=== PATIENT | male | born 1945 | race Caucasian/White ===

== ENCOUNTER → 2017-03-06 | Outpatient (CLI) | payer MEDICARE ==
[2016-01-20 09:48] VITALS: BMI 20.7
[~2017-03-06] MED LIST: ALBU8.5H IH; ASPI-1471 PO; ATOR20TA22 PO; ATOR20TA65 PO; BUDE10.2 IH; CARV25TA78 PO; DULERAPT INH; FLUT9.9S; FUR20; FURO-45 PO; FURO20TA19 PO; GUAI600T57 PO; HYDR-2966 PO; INHALER; LEVO25TA61 PO; LISI-346 PO; LISI-362 PO; LISI20TA29 PO; OMEG-11 PO; OMEG-23 PO; PNEU0.5D3 IM; PRED-1 PO; SERT-184 PO; [UNRECOGNIZED DRUG - REMARK]
[2017-03-06 12:04] LABS: PLATELET COUNT, AUTOMATED 257 K/uL (150-450)
== END ==
LOC: LAB 11:57
PROVIDERS: ATTEND Family Medicine
DX: R19.7 Diarrhea, unspecified (principal); I10 Essential (primary) hypertension
CPT/HCPCS: 36415; 82310; 82374; 82435; 82565; 82947; 84132; 84295; 84520; 85025

== ENCOUNTER 2017-06-20 09:00 | Outpatient (RCR) | payer MEDICARE ==
[2016-01-20 09:48] VITALS: BMI 20.7
== END 2017-06-20 18:00 | disposition home or self-care (01) ==
LOC: RESP 09:00
PROVIDERS: ATTEND Family Medicine
DX: R09.02 Hypoxemia (principal); Z87.09 Personal history of other diseases of the respiratory system

== ENCOUNTER 2017-07-17 16:05 | Emergency (ER) | payer MEDICARE ==
[2016-01-20 09:48] VITALS: Wt 63.5 kg
[2017-07-17] MEDS ORDERED: LISI20TA29 PO (16:16)
[2017-07-17] MEDS ORDERED: LEVO50TA86 PO (16:16)
--- NOTE | 2017-07-17 16:18 | ER Report ---
History and Physical Time Seen By MD: 16:17 HPI/ROS CHIEF COMPLAINT: Blood in stool HISTORY OF PRESENT ILLNESS: This is a 72-year-old male who presents to the emergency department for bright red blood in the stool. Patient states he was seen by Dr. STRAUSS today had a normal exam, went home and was straining to have a bowel movement and noticed some bright red blood in his stool, patient states that it was uncomfortable, patient also states that he does have a history of hemorrhoids. Patient does have a family member here confirming that he does have a history of hemorrhoids. Patient did state that the bowel movement today was very hard and firm. Patient denies aches, chills, nausea, vomiting or diarrhea. Denies dizziness. REVIEW OF SYSTEMS: Constitutional: No fever, no chills. Eyes: No discharge. ENT: No sore throat. Cardiovascular: No chest pain, no palpitations. Respiratory: No cough, no shortness of breath. Gastrointestinal: As above. Genitourinary: No hematuria. Musculoskeletal: No back pain. Skin: No rashes. Neurological: No headache. Allergies: Coded Allergies: Sulfa (Sulfonamide Antibiotics) (Verified Allergy, Intermediate, HIVES, RASH, 07/17/17) Home Meds Active Scripts Carvedilol (CARVEDILOL) 25 Mg Tablet, 1 TAB PO BID, #180 TAB 4 Refills Prov:POPPY BLAKE MD 01/10/17 Atorvastatin Calcium (LIPITOR) 20 Mg Tablet, 1 TAB PO QDAY for 90 Days, #90 TAB 3 Refills Prov:POPPY BLAKE MD 10/17/16 Reported Medications Lisinopril (LISINOPRIL) 20 Mg Tablet, 20 MG PO QDAY, TAB 07/17/17 Levothyroxine Sodium (LEVOTHYROXINE SODIUM) 50 Mcg Tablet, 25 MCG PO QDAY, TAB 07/17/17 Aspirin (ASPIR 81) 81 Mg Tablet., 1 TAB PO QDAY, TAB 09/15/16 Discontinued Reported Medications Mometasone/Formoterol (DULERA 200 MCG/5 MCG INHALER) Unknown Strength Inh, INH BID, INH 09/14/16 Discontinued Scripts Lisinopril (LISINOPRIL) 10 Mg Tablet, 10 MG PO QDAY for 90 Days, #90 TAB 3 Refills Prov:POPPY BLAKE MD 04/17/17 Fluticasone Propionate (Flonase Allergy Relief) 9.9 Ml [place].susp, 1 SPRAY NA BID for 30 Days, #1 BOTTLE 3 Refills Prov:POPPY BLAKE MD 10/17/16 Past Medical/Surgical History Patient has a past medical and surgical history of 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 Hx Smoking: Yes Smoking Status: Former Smoker Exposure to Second Hand Smoke?: No Hx Substance Use Disorder: No Hx Alcohol Use: Yes Constitutional Vital Sign - Last 24 Hours 07/17/17 07/17/17 07/17/17 07/17/17 16:12 16:19 16:20 16:30 Temp 97.6 Pulse 71 72 Resp 16 B/P (MAP) 200/95 178/160 (166) 187/93 (124) Pulse Ox 90 91 O2 Delivery Room Air 07/17/17 07/17/17 07/17/17 07/17/17 16:50 17:00 17:05 17:20 Pulse 70 71 71 B/P (MAP) 189/96 (127) Pulse Ox 89 89 87 07/17/17 07/17/17 07/17/17 07/17/17 17:30 17:35 17:50 18:00 Pulse 72 73 B/P (MAP) 210/109 (142) 202/111 (141) Pulse Ox 88 91 07/17/17 07/17/17 07/17/17 07/17/17 18:30 18:45 19:00 19:15 Pulse 86 69 91 84 B/P (MAP) 197/96 (129) 190/118 (142) Pulse Ox 90 86 86 85 07/17/17 07/17/17 07/17/17 07/17/17 19:20 19:50 20:00 20:05 Pulse ? 68 B/P (MAP) 203/105 (137) 208/105 (139) Pulse Ox 89 96 Physical Exam General Appearance: The patient is alert, has no immediate need for airway protection and no signs of toxicity. Eyes: Pupils equal and round no pallor or injection. ENT, Mouth: Mucous membranes are moist. Respiratory: There are no retractions, lungs are clear to auscultation. Cardiovascular: Regular rate and rhythm, systolic murmur, clicks or rubs. Gastrointestinal: Abdomen is soft and non tender, no masses, bowel sounds normal. Rectal exam positive for large hard stool in the rectal vault. One small hemorrhoid nonthrombosed no hematochezia. Neurological: Alert and oriented 3. No focal neuro deficits. Following all commands. Skin: Warm and dry, no rashes. Musculoskeletal: Neck is supple non tender. Extremities are nontender, nonswollen and have full range of motion. DIFFERENTIAL DIAGNOSIS: After history and physical exam differential diagnosis was considered for upper GI bleed, lower GI bleed, hemorrhoids and constipation. Medical Decision Making Data Points Result Diagram: 07/17/17 1632 07/17/17 1632 Laboratory Hematology Test 07/17/17 16:32 07/17/17 17:05 Red Blood Count 5.14 M/uL (4.00-5.60) Mean Corpuscular Volume 86.3 fL (80.0-96.0) Mean Corpuscular Hemoglobin 28.9 pg (26.0-33.0) Mean Corpuscular Hemoglobin Concent 33.5 g/dL (32.0-36.0) Red Cell Distribution Width 13.4 % (11.5-14.5) Mean Platelet Volume 7.3 fL (7.2-11.1) Neutrophils (%) (Auto) 80.1 % (39.4-72.5) Lymphocytes (%) (Auto) 8.8 % (17.6-49.6) Monocytes (%) (Auto) 5.4 % (4.1-12.4) Eosinophils (%) (Auto) 4.9 % (0.4-6.7) Basophils (%) (Auto) 0.8 % (0.3-1.4) Nucleated RBC Relative Count (auto) 0.1 /100WBC Neutrophils # (Auto) 9.2 K/uL (2.0-7.4) Lymphocytes # (Auto) 1.0 K/uL (1.3-3.6) Monocytes # (Auto) 0.6 K/uL (0.3-1.0) Eosinophils # (Auto) 0.6 K/uL (0.0-0.5) Basophils # (Auto) 0.1 K/uL (0.0-0.1) Nucleated RBC Absolute Count (auto) 0.01 K/uL Sodium Level 135 mmol/L (137-145) Potassium Level 4.7 mmol/L (3.5-5.0) Chloride Level 99 mmol/L (98-107) Carbon Dioxide Level 26 mmol/L (22-30) Blood Urea Nitrogen 37 mg/dl (9-21) Creatinine 1.10 mg/dl (0.66-1.25) Glomerular Filtration Rate Calc > 60.0 Random Glucose 97 mg/dl (75-110) Calcium Level 9.1 mg/dl (8.4-10.2) Total Bilirubin 0.9 mg/dl (0.2-1.3) Aspartate Amino Transf (AST/SGOT) 28 U/L (0-35) Alanine Aminotransferase (ALT/SGPT) 26 U/L (0-56) Alkaline Phosphatase 110 U/L (0-126) Total Protein 7.9 gm/dl (6.3-8.2) Albumin 4.0 g/dl (3.5-5.0) Prothrombin Time 15.0 seconds (12.0-14.4) Prothromb Time International Ratio 1.17 Activated Partial Thromboplast Time 32 seconds (23-35) Chemistry Test 07/17/17 16:32 07/17/17 17:05 White Blood Count 11.5 k/uL (4.5-11.0) Red Blood Count 5.14 M/uL (4.00-5.60) Hemoglobin 14.8 g/dL (14.0-18.0) Hematocrit 44.4 % (42.0-52.0) Mean Corpuscular Volume 86.3 fL (80.0-96.0) Mean Corpuscular Hemoglobin 28.9 pg (26.0-33.0) Mean Corpuscular Hemoglobin Concent 33.5 g/dL (32.0-36.0) Red Cell Distribution Width 13.4 % (11.5-14.5) Platelet Count 291 K/uL (150-450) Mean Platelet Volume 7.3 fL (7.2-11.1) Neutrophils (%) (Auto) 80.1 % (39.4-72.5) Lymphocytes (%) (Auto) 8.8 % (17.6-49.6) Monocytes (%) (Auto) 5.4 % (4.1-12.4) Eosinophils (%) (Auto) 4.9 % (0.4-6.7) Basophils (%) (Auto) 0.8 % (0.3-1.4) Nucleated RBC Relative Count (auto) 0.1 /100WBC Neutrophils # (Auto) 9.2 K/uL (2.0-7.4) Lymphocytes # (Auto) 1.0 K/uL (1.3-3.6) Monocytes # (Auto) 0.6 K/uL (0.3-1.0) Eosinophils # (Auto) 0.6 K/uL (0.0-0.5) Basophils # (Auto) 0.1 K/uL (0.0-0.1) Nucleated RBC Absolute Count (auto) 0.01 K/uL Glomerular Filtration Rate Calc > 60.0 Calcium Level 9.1 mg/dl (8.4-10.2) Total Bilirubin 0.9 mg/dl (0.2-1.3) Aspartate Amino Transf (AST/SGOT) 28 U/L (0-35) Alanine Aminotransferase (ALT/SGPT) 26 U/L (0-56) Alkaline Phosphatase 110 U/L (0-126) Total Protein 7.9 gm/dl (6.3-8.2) Albumin 4.0 g/dl (3.5-5.0) Prothrombin Time 15.0 seconds (12.0-14.4) Prothromb Time International Ratio 1.17 Activated Partial Thromboplast Time 32 seconds (23-35) Coagulation Test 07/17/17 17:05 Prothrombin Time 15.0 seconds Prothromb Time International Ratio 1.17 Activated Partial Thromboplast Time 32 seconds EKG/Imaging Imaging Location: [facility] [place] Patient: Jose Soliz : 1945 Visit/Account:[id number] Date of Sevice: 07/17/2017 COMPUTED TOMOGRAPHY OF THE Abdomen and Pelvis with CONTRAST INDICATION: Possible small bowel obstruction. TECHNIQUE: Contiguous axial 3.[address] images were obtained through the abdomen and pelvis after 75 cc Isovue-370. Coronal and sagittal reformatted images were submitted. COMPARISON: None. FINDINGS: Lung bases: Mild atelectasis at the lung bases. Liver and hepatic vasculature: Fatty infiltration adjacent to falciform. No ascites. No focal liver lesion. Gallbladder and bile ducts: A few gallstones layer dependently within the gallbladder. No suggestion of cholecystitis. Spleen: Normal Pancreas: Normal Adrenals: Normal Kidneys, ureters and bladder: No hydronephrosis or collecting system obstruction. Prominent left renal pelvis. Small left renal cyst. Normal- appearing bladder. Retroperitoneum and aorta: Extensive aortic atherosclerosis extends into the iliac distributions. No aneurysm. No intracranial adenopathy. GI tract, mesentery and peritoneum: No bowel obstruction. No free fluid or free air. There is a very large rectal stool ball in a moderate volume of stool in the rectosigmoid colon. Prostate: Unremarkable. Bones and soft tissues: No acute osseous abnormality. Multilevel degenerative findings in the lumbar spine. IMPRESSION: 1. No small bowel obstruction. 2. Large rectal stool ball and moderate volume of stool in the rectosigmoid colon. One of the following dose optimization techniques was utilized in the performance of this exam: Automated exposure control; adjustment of the mA and/ or kV according to the patient's size; or use of an iterative reconstruction technique. Specific details can be referenced in the facility's radiology CT exam operational policy. Report Dictated By: Anali Rodriguez MD at 07/17/2017 6:39 PM Report E-Signed By: Anali Rodriguez MD at 07/17/2017 6:53 PM WSN:[id number] Location: [facility] [place] Patient: Jose Soliz : 1945 Visit/Account:[id number] Date of Sevice: 07/17/2017 Exam type: ACUTE ABDOMEN SERIES 3 VIEW History: Constipation, blood from rectum Comparison: Two view chest April 23, 2014. Findings: Chronic interstitial changes are again seen throughout the lungs. There is no evidence of acute pulmonary consolidation or pleural effusions. The cardiac silhouette is normal in size. Supine and upright views the abdomen reveal air-fluid levels in several loops of nondilated bowel in the mid to upper abdomen. This could in part be within the small bowel. Differential diagnosis would include an ileus or very early small bowel obstruction. There is no evidence of free air beneath hemidiaphragms. No evidence of organomegaly. There are moderate spondylotic changes of the visualized thoracal lumbar spine. IMPRESSION: 1. Air-fluid levels are seen in several loops of nondilated bowel in the mid and upper abdomen. Some of these loops could be small bowel. Differential diagnosis would include an ileus or very early small bowel obstruction. Report Dictated By: Halie Stevenson MD at 07/17/2017 4:59 PM Report E-Signed By: Halie Stevenson MD at 07/17/2017 ED Course/Re-evaluation Clinical Indication for ER IV: IV Access ED Course The patient was admitted to room. A history and physical were obtained. Differential diagnoses were considered. An IV was started. A CBC, CMP. PT and INR were obtained. Mild elevation in the wbc's, with a left shift otherwise unremarkable. Chemistry unremarkable. INR 1.17.On exam I did note that there was a small hemorrhoid is nonthrombosed no hematochezia digital exam did reveal a large amount of stool in the rectal vault very firm. Three-view x-ray concerning for ileus or small bowel obstruction. I did review the patient and the family member at the bedside did tell them that we'll go ahead and proceed with a CT scan. The CT of the abdomen and pelvis showing no bowel obstruction, there is a large rectal stool ball in the rectosigmoid colon. I did return and discussed this with the patient which time I try to gently disimpact the stool. Occult for the patient at which time we tried an enema which did produce a small amount stool and some liquid. Patient was also sent home with a bottle of mag citrate instructed to take only half the bottle, the family member at the bedside was given these instructions as well. It was noted that the patient's blood pressure was elevated while in the emergency department however the patient did appear agitated and was asymptomatic, no headaches no other complaints. Discussed this with the patient and he will follow-up with his primary care provider Dr. Blake for reevaluation of the stool as well as the hypertension. They were instructed to return with any other concerns or worsening symptoms. The patient states that he wants to go home, patient had no questions or concerns at this time and was discharged home. 07/17/2017 7:19:32 pm the abdominal series was concerning for a small bowel obstruction therefore we did proceed with a CT of the abdomen pelvis which was negative for bowel obstruction however there is a large amount of stool in the rectal vault. Review this with the patient and did tell him I'd like to see back and expressed some of the stool out of the rectal vault, I was able to remove a small amount however was very uncomfortable for the patient. I did elect at this time to try a fleets enema. 07/17/2017 8:05:07 pm there was a small amount of stool and liquid following the enema. Patient will be sent home with a bottle of mag citrate, instructed to take only half a bottle. Decision to Disposition Date: Jul 17, 2017 Decision to Disposition Time: 20:04 Depart Departure Latest Vital Signs Vital Signs Date Time Temp Pulse Resp B/P (MAP) Pulse Ox O2 Delivery O2 Flow Rate FiO2 07/17/17 20:05 68 96 07/17/17 20:00 208/105 (139) 07/17/17 16:12 97.6 16 Room Air Impression: Primary Impression: Hemorrhoids Additional Impression: Impacted stool in rectum Condition: Improved Disposition: HOME OR SELF-CARE Referrals: POPPY BLAKE MD (PCP) JACOB CREWS MD Patient Instructions: Constipation (ED), Hemorrhoids (ED) Additional Instructions: Drink plenty of water. Get plenty of rest. For the hemorrhoids try sitz baths or Tucks medicated pads for the local irritation. If the hemorrhoids do not resolve considered following up with Dr. Cadena for long-term solutions for the hemorrhoids. Drink half of the mag citrate when you get home. Follow-up with Dr. Blake as scheduled. Return to the emergency department for any other concerns or worsening symptoms. Be sure to follow up with Dr. Blake regarding your blood pressure too, if you have any other concerns please return to the ED for further evaluation. Problem Qualifiers Primary Impression: Hemorrhoids Hemorrhoid type: unspecified Qualified Codes: K64.9 - Unspecified hemorrhoids RAKEL DEL ROSARIO [employer]-BC Jul 17, 2017 16:17
[2017-07-17 16:45] LABS: PLATELET COUNT, AUTOMATED 291 K/uL (150-450)
--- NOTE | 2017-07-17 17:05 | RADIOLOGY IMAGING REPORT ---
FACILITY: [facility] [place] PATIENT NAME: Jose Soliz : 1945 MR: [id number] V: [id number] EXAM DATE: ORDERING PHYSICIAN: RAKEL DEL ROSARIO TECHNOLOGIST: Location: [facility] [place] Patient: Jose Soliz : 1945 Visit/Account:[id number] Date of Sevice: 07/17/2017 Exam type: ACUTE ABDOMEN SERIES 3 VIEW History: Constipation, blood from rectum Comparison: Two view chest April 23, 2014. Findings: Chronic interstitial changes are again seen throughout the lungs. There is no evidence of acute pulm onary consolidation or pleural effusions. The cardiac silhouette is normal in size. Supine and upright views the abdomen reveal air-fluid levels in several loops of nondilated bowel in the mid to upper abdomen. This could in part be within the small bowel. Differential diagnosis woul d include an ileus or very early small bowel obstruction. There is no evidence of free air beneath h emidiaphragms. No evidence of organomegaly. There are moderate spondylotic changes of the visualize d thoracal lumbar spine. IMPRESSION: 1. Air-fluid levels are seen in several loops of nondilated bowel in the mid and upper abdomen. Some of these loops could be small bowel. Differential diagnosis would include an ileus or very early sm all bowel obstruction. Report Dictated By: Halie Stevenson MD at 07/17/2017 4:59 PM Report E-Signed By: Halie Stevenson MD at 07/17/2017 5:02 PM WSN:[email or web address]
[2017-07-17 17:18] LABS: INR 1.17
[2017-07-17] MEDS ORDERED: IOPAMIDOL 76% 75 ML INFUS BTL 75 ML ONE (18:08)
--- NOTE | 2017-07-17 18:56 | RADIOLOGY IMAGING REPORT ---
FACILITY: [facility] PATIENT NAME: Jose Soliz : 1945 MR: [id number] V: [id number] EXAM DATE: ORDERING PHYSICIAN: RAKEL DEL ROSARIO TECHNOLOGIST: Location: [facility] Patient: Jose Soliz : 1945 Visit/Account:[id number] Date of Sevice: 07/17/2017 COMPUTED TOMOGRAPHY OF THE Abdomen and Pelvis with CONTRAST INDICATION: Possible small bowel obstruction. TECHNIQUE: Contiguous axial 3.[address] images were obtained through the abdomen and pelvis after 75 c c Isovue-370. Coronal and sagittal reformatted images were submitted. COMPARISON: None. FINDINGS: Lung bases: Mild atelectasis at the lung bases. Liver and hepatic vasculature: Fatty infiltration adjacent to falciform. No ascites. No focal liver lesion. Gallbladder and bile ducts: A few gallstones layer dependently within the gallbladder. No suggestion of cholecystitis. Spleen: Normal Pancreas: Normal Adrenals: Normal Kidneys, ureters and bladder: No hydronephrosis or collecting system obstruction. Prominent left elfego al pelvis. Small left renal cyst. Normal-appearing bladder. Retroperitoneum and aorta: Extensive aortic atherosclerosis extends into the iliac distributions. No aneurysm. No intracranial adenopathy. GI tract, mesentery and peritoneum: No bowel obstruction. No free fluid or free air. There is a very large rectal stool ball in a moderate volume of stool in the rectosigmoid colon. Prostate: Unremarkable. Bones and soft tissues: No acute osseous abnormality. Multilevel degenerative findings in the lumbar spine. IMPRESSION: 1. No small bowel obstruction. 2. Large rectal stool ball and moderate volume of stool in the rectosigmoid colon. One of the following dose optimization techniques was utilized in the performance of this exam: Autom ated exposure control; adjustment of the mA and/or kV according to the patient's size; or use of an i terative reconstruction technique. Specific details can be referenced in the facility's radiology C T exam operational policy. Report Dictated By: Anali Rodriguez MD at 07/17/2017 6:39 PM Report E-Signed By: Anali Rodriguez MD at 07/17/2017 6:53 PM WSN:[id number]
[2017-07-17] MEDS ORDERED: MAGNESIUM CITRATE 300 ML BTL PO ONE (20:10)
[2017-07-17 20:24] VITALS: BP 203/108
== END 2017-07-17 20:34 | disposition home or self-care (01) ==
LOC: ER 16:08
DX: K64.9 Unspecified hemorrhoids (principal); K56.41 Fecal impaction
CPT/HCPCS: 36415; 74022; 74177; 85025; 85610; 85730; 99284; Q9967; 82040; 82247; 82310; 82374; 82435; 82565; 82947; 84075; 84132; 84155; 84295; 84450; 84460; 84520

== ENCOUNTER 2017-11-03 18:09 | Emergency (ER) | payer MEDICARE ==
[2016-01-20 09:48] VITALS: Wt 63.5 kg
[2017-11-03] MEDS ORDERED: NS(*) 0.9% 1000 ML BAG 1,000 ML IV ONE (18:24)
--- NOTE | 2017-11-03 18:24 | ER Report ---
History and Physical Time Seen By MD: 18:21 HPI/ROS CHIEF COMPLAINT: Hypoxia, altered mental status HISTORY OF PRESENT ILLNESS: 72-year-old male brought in from home by EMS with low oxygen. Patient's noncompliant and is O2. He has a extensive history of COPD with [id number] history. Patient's on home O2 at approximately 2 L/m. On arrival, patient's warm to touch. She fevers documented 100.6. She denies chest pain, shortness breath or productive cough. Patient denies leg swelling or calf pain. REVIEW OF SYSTEMS: Respiratory: As above Cardiovascular: No chest pain, no palpitations. Gastrointestinal: No vomiting, no abdominal pain. Musculoskeletal: No back pain. Allergies: Coded Allergies: Sulfa (Sulfonamide Antibiotics) (Verified Allergy, Intermediate, HIVES, RASH, 11/03/17) Home Meds Active Scripts Atorvastatin Calcium (LIPITOR) 20 Mg Tablet, 1 TAB PO QDAY for 90 Days, #90 TAB 4 Refills Prov:POPPY DENG MD 11/02/17 Carvedilol (CARVEDILOL) 25 Mg Tablet, 1 TAB PO BID, #180 TAB 4 Refills Prov:POPPY DENG MD 01/10/17 Reported Medications Lisinopril (LISINOPRIL) 20 Mg Tablet, 20 MG PO QDAY, TAB 07/17/17 Levothyroxine Sodium (LEVOTHYROXINE SODIUM) 50 Mcg Tablet, 25 MCG PO QDAY, TAB 07/17/17 Aspirin (ASPIR 81) 81 Mg Tablet.dr, 1 TAB PO QDAY, TAB 09/15/16 Past Medical/Surgical History Past, Family, & Social History Past Medical History Reviewed: Yes Neurologic: Reports hx of: dementia stroke (multiple CVA) Cardiovascular: Reports hx of: coronary artery disease hyperlipidemia hypertension myocardial infarction (2015) Respiratory: Reports hx of: asthma chronic bronchitis COPD (uses oxygen every night 2L ) Gastrointestinal: Denies hx of: constipation, chronic Psychiatric: Reports hx of: alcoholism depression Endocrine: Reports hx of: hypothyroidism HEENT: Reports hx of: tonsillectomy other eye surgery lumbar laminectomy Cardiovascular: Reports hx of: carotid endarterectomy Reviewed Nurses Notes: Yes Old Medical Records Reviewed: Yes Hx Smoking: Yes Smoking Status: Former Smoker Exposure to Second Hand Smoke?: No Hx Substance Use Disorder: No Hx Alcohol Use: Yes Constitutional Vital Sign - Last 24 Hours 11/03/17 11/03/17 11/03/17 11/03/17 18:09 18:20 18:22 18:24 Temp 100.6 Pulse ??? 82 82 Resp 27 B/P (MAP) 155/76 155/76 (102) Pulse Ox 93 93 O2 Delivery Room Air 11/03/17 11/03/17 11/03/17 11/03/17 18:30 18:31 18:39 18:49 Pulse 80 76 Resp 29 18 B/P (MAP) 154/74 (100) Pulse Ox 92 O2 Flow Rate 2.0 11/03/17 11/03/17 11/03/17 11/03/17 18:49 18:54 19:00 19:09 Pulse 77 76 Resp 28 21 B/P (MAP) 158/71 (100) Pulse Ox 91 94 90 O2 Delivery Nasal Cannula O2 Flow Rate 2.0 11/03/17 11/03/17 11/03/17 11/03/17 19:24 19:30 19:39 19:44 Pulse 82 78 80 Resp 28 B/P (MAP) 155/77 (103) Pulse Ox 92 91 11/03/17 11/03/17 11/03/17 11/03/17 19:59 20:00 20:14 20:29 Pulse ??? 84 99 Resp 28 B/P (MAP) ???/??? (4485) Pulse Ox 91 91 11/03/17 11/03/17 11/03/17 11/03/17 20:30 20:44 20:59 21:00 Pulse 98 98 Resp 28 B/P (MAP) 139/61 (87) 139/70 (93) Pulse Ox 91 90 11/03/17 11/03/17 11/03/17 11/03/17 21:14 21:29 21:30 21:35 Pulse 90 80 79 Resp 25 25 B/P (MAP) 133/65 (87) Pulse Ox 90 90 91 11/03/17 11/03/17 11/03/17 11/03/17 21:50 22:00 22:05 22:20 Pulse 76 78 79 Resp 15 20 24 B/P (MAP) 137/63 (87) Pulse Ox 91 92 93 11/03/17 11/03/17 11/03/1728/18 22:30 22:35 22:40 22:55 Pulse 75 76 74 Resp 24 26 26 B/P (MAP) 129/88 (102) Pulse Ox 88 90 89 11/03/17 11/03/17 11/03/17 11/03/17 23:00 23:10 23:25 23:30 Pulse 75 75 Resp 24 23 B/P (MAP) 133/62 (85) 120/72 (88) Pulse Ox 89 89 Intake and Output 11/03/17 11/03/17 11/04/17 15:00 23:00 07:00 Intake Total 1000 ml Balance 1000 ml Physical Exam Vital signs stable, afebrile, pulse ox normal General Appearance: The patient is alert, has no immediate need for airway p rotection and no current signs of toxicity. No acute distress, stoic and withdrawn HEENT: Pupils equal and round no injection. Oropharynx with mild erythema, mucous members are moist Respiratory: Chest is non tender, lungs are clear to auscultation. Decreased breath sounds bilaterally, no wheezes or rales Cardiac: regular rate and rhythm, distant heart sounds Gastrointestinal: Abdomen is soft and non tender, no masses, bowel sounds normal. Musculoskeletal: Neck: Neck is supple and non tender. Extremities have full range of motion and are non tender. Skin: No rashes or lesions. DIFFERENTIAL DIAGNOSIS: After history and physical exam differential diagnosis was considered for shortness of breath including but not limited to pulmonary infectious process, COPD, asthma, pulmonary embolus and congestive heart failure. Medical Decision Making Data Points Result Diagram: 11/03/17 18211/03/17 1820 Laboratory Hematology Test 11/03/17 18:20 Red Blood Count 4.49 M/uL (4.00-5.60) Mean Corpuscular Volume 86.4 fL (80.0-96.0) Mean Corpuscular Hemoglobin 29.0 pg (26.0-33.0) Mean Corpuscular Hemoglobin Concent 33.6 g/dL (32.0-36.0) Red Cell Distribution Width 15.3 % (11.5-14.5) Mean Platelet Volume 7.4 fL (7.2-11.1) Neutrophils (%) (Auto) 89.0 % (39.4-72.5) Lymphocytes (%) (Auto) 3.6 % (17.6-49.6) Monocytes (%) (Auto) 6.0 % (4.1-12.4) Eosinophils (%) (Auto) 1.0 % (0.4-6.7) Basophils (%) (Auto) 0.4 % (0.3-1.4) Nucleated RBC Relative Count (auto) 0.0 /100WBC Neutrophils # (Auto) 14.3 K/uL (2.0-7.4) Lymphocytes # (Auto) 0.6 K/uL (1.3-3.6) Monocytes # (Auto) 1.0 K/uL (0.3-1.0) Eosinophils # (Auto) 0.2 K/uL (0.0-0.5) Basophils # (Auto) 0.1 K/uL (0.0-0.1) Nucleated RBC Absolute Count (auto) 0.00 K/uL Prothrombin Time 14.4 seconds (12.0-14.4) Prothromb Time International Ratio 1.11 Activated Partial Thromboplast Time 31 seconds (23-35) D-Dimer Quantitative (PE/DVT) 0.88 ug/ml (0-0.50) Sodium Level 139 mmol/L (137-145) Potassium Level 4.9 mmol/L (3.5-5.0) Chloride Level 103 mmol/L (98-107) Carbon Dioxide Level 25 mmol/L (22-30) Blood Urea Nitrogen 36 mg/dl (9-21) Creatinine 1.20 mg/dl (0.66-1.25) Glomerular Filtration Rate Calc 59.2 Random Glucose 110 mg/dl (75-110) Lactate 1.3 mmol/L (0.7-2.1) Calcium Level 9.4 mg/dl (8.4-10.2) Total Bilirubin 0.9 mg/dl (0.2-1.3) Aspartate Amino Transf (AST/SGOT) 23 U/L (0-35) Alanine Aminotransferase (ALT/SGPT) 20 U/L (0-56) Alkaline Phosphatase 76 U/L (0-126) Troponin I 0.136 ng/ml B-Type Natriuretic Peptide 178 pg/ml (0-100) Total Protein 7.5 g/dl (6.3-8.2) Albumin 4.1 g/dl (3.5-5.0) Chemistry Test 11/03/17 18:20 White Blood Count 16.1 k/uL (4.5-11.0) Red Blood Count 4.49 M/uL (4.00-5.60) Hemoglobin 13.0 g/dL (14.0-18.0) Hematocrit 38.8 % (42.0-52.0) Mean Corpuscular Volume 86.4 fL (80.0-96.0) Mean Corpuscular Hemoglobin 29.0 pg (26.0-33.0) Mean Corpuscular Hemoglobin Concent 33.6 g/dL (32.0-36.0) Red Cell Distribution Width 15.3 % (11.5-14.5) Platelet Count 296 K/uL (150-450) Mean Platelet Volume 7.4 fL (7.2-11.1) Neutrophils (%) (Auto) 89.0 % (39.4-72.5) Lymphocytes (%) (Auto) 3.6 % (17.6-49.6) Monocytes (%) (Auto) 6.0 % (4.1-12.4) Eosinophils (%) (Auto) 1.0 % (0.4-6.7) Basophils (%) (Auto) 0.4 % (0.3-1.4) Nucleated RBC Relative Count (auto) 0.0 /100WBC Neutrophils # (Auto) 14.3 K/uL (2.0-7.4) Lymphocytes # (Auto) 0.6 K/uL (1.3-3.6) Monocytes # (Auto) 1.0 K/uL (0.3-1.0) Eosinophils # (Auto) 0.2 K/uL (0.0-0.5) Basophils # (Auto) 0.1 K/uL (0.0-0.1) Nucleated RBC Absolute Count (auto) 0.00 K/uL Prothrombin Time 14.4 seconds (12.0-14.4) Prothromb Time International Ratio 1.11 Activated Partial Thromboplast Time 31 seconds (23-35) D-Dimer Quantitative (PE/DVT) 0.88 ug/ml (0-0.50) Glomerular Filtration Rate Calc 59.2 Lactate 1.3 mmol/L (0.7-2.1) Calcium Level 9.4 mg/dl (8.4-10.2) Total Bilirubin 0.9 mg/dl (0.2-1.3) Aspartate Amino Transf (AST/SGOT) 23 U/L (0-35) Alanine Aminotransferase (ALT/SGPT) 20 U/L (0-56) Alkaline Phosphatase 76 U/L (0-126) Troponin I 0.136 ng/ml B-Type Natriuretic Peptide 178 pg/ml (0-100) Total Protein 7.5 g/dl (6.3-8.2) Albumin 4.1 g/dl (3.5-5.0) Coagulation Test 11/03/17 18:20 Prothrombin Time 14.4 seconds Prothromb Time International Ratio 1.11 Activated Partial Thromboplast Time 31 seconds D-Dimer Quantitative (PE/DVT) 0.88 ug/ml EKG/Imaging EKG Interpretation 12 lead EK Rhythm: normal sinus rhythm 82 bpm Jackson: normal QRS: normal ST segments: normal, comparison to previous EKG dated 01/19/16. There does not appear to be significant change. There are subtle flattening of the J- point elevation in the V2 through V4 leads, suspicious for evidence of ischemia Imaging Results: CT scan of the CTA pulmonary angiogram was obtained. The results of the study are EXAMINATION: CTA of the chest with IV contrast HISTORY: Dyspnea. TECHNIQUE: Pulmonary embolus protocol - Thin axial CT images of the chest were obtained with IV contrast during maximal pulmonary arterial opacification. Reconstruction of the source data includes multiplanar 2D coronal and sagittal reconstructed images, and 3D coronal and sagittal MIP images. Electrical Prospect[employer] Supervisor images have been stored on PACS. One of the following dose optimization techniques was utilized in the performance of this exam: Automated exposure control; adjustment of the mA and/or kV according to the patient's size; or use of an iterative reconstr uction technique. Specific details can be referenced in the facility's radiology CT exam operational policy. Contrast: 75 mL of IV Isovue-370. COMPARISON: None. FINDINGS: Pulmonary arteries: The pulmonary arteries are well opacified, without suspicious filling defect. Heart, aorta, and great vessels: Normal caliber thoracic aorta, without aneurysm or dissection. Normal heart size. Vascular calcifications, including coronary artery calcifications. No pericardial effusion. Lungs and pleura: There are patchy regions of consolidation in the right middle lobe and right lower lobe, compatible with multifocal pneumonitis. There is partial opacification of bronchial segments in the right lower lobe with some low-attenuation material which may represent secretions. No focal consolidation on the left. Moderate emphysematous changes in the upper lungs. No pleural effusion or pneumothorax. Mediastinum and eligio: Mildly prominent bilateral hilar and mediastinal lymph nodes are nonspecific and may be reactive. Largest nodes measure 1.0 cm in short-axis diameter at the right hilum, 1.4 cm in the subcarinal region, and 1.0 cm at the left hilum. Visualized upper abdomen: Unremarkable. Chest wall: Negative. Bones: Multilevel degenerative changes throughout the spine. No acute osseous findings. IMPRESSION: 1. No evidence of pulmonary embolism. 2. There are patchy regions of consolidation in the right middle lobe and right lower lobe, suspicious for multifocal pneumonitis. There is some low-attenuation material within bronchial segments of the right lower lobe which may represent secretions. 3. Moderate emphysematous changes in the lungs. 4. Coronary artery calcifications. The study was read by the radiologist. I viewed the images myself on the PACS system. ED Course/Re-evaluation Clinical Indication for ER IV: IV Access ED Course Patient was admitted to an examination room. H&P was done. The differential diagnoses was considered. On clinical examination, patient appears hypoxic. He is febrile. He has [id number] smoking history with advanced COPD. He is noncompliant on his O2. Brought in today by his daughters called EMS because he is lethargic and having difficulty breathing. He denies chest pain. Patient is very stoic. Diagnostic evaluation shows a 16,000 white count with a left shift. His d-dimer was elevated, so a CTA pulmonary injury gram was performed which showed no pulmonary embolism. There is infiltrate noted in the right middle and right lower lobes. His lactate was normal suggesting no evidence of sepsis Patient's EKG shows no changes. But his troponin returns elevated at 0.137 suspicious for an and STEMI. Patient was medicated with an aspirin. Patient was planning to sign out AMA. With the strong urging of his daughters. He's agreed to be admitted. He'll be transferred to [facility] were cardiology can consult on him for his and STEMI while he undergoes treatment for his pneumonia. 11/03/2017 9:00:38 pm results of CAT scan were discussed with the patient and his daughters. He has pretty significant pneumonia and multiple lobes on his CT scan. There was no evidence of pulmonary embolism. His elevated troponin dunham ggesting a mild heart attack. I suggest the patient be admitted transfer to facility with cardiology. She has stating he wishes to go home. I advised him that he would at the sign out against medical advice. I left him with his daughters discuss his options. Hoping that they will convince him to stay. 11/03/2017 9:56:37 pm case discussed with hospitalist at [facility] Dr Jc who accepts the patient for admission to his facility. Decision to Disposition Date: Nov 03, 2017 Decision to Disposition Time: 21:00 Critical Care Time I spent a total of 60 minutes of critical care time in obtaining history, performing a physical exam, bedside monitoring of interventions, collecting and interpreting tests and discussion with consultants but not including time spent performing procedures. Depart Departure Latest Vital Signs Vital Signs Date Time Temp Pulse Resp B/P (MAP) Pulse Ox O2 Delivery O2 Flow Rate FiO2 11/03/17 23:30 120/72 (88) 11/03/17 23:25 75 23 89 11/03/17 18:49 Nasal Cannula 2.0 11/03/17 18:20 100.6 Impression: Primary Impression: Non-STEMI (non-ST elevated myocardial infarction) Additional Impressions: Hypoxia History of COPD Elevated d-dimer Elevated troponin Fever Pneumonia Condition: Improved Disposition: XFER TO ACUTE CARE HOSPITAL Referrals: POPPY DENG MD (PCP) Problem Qualifiers Additional Impressions: Fever Fever type: unspecified Qualified Codes: R50.9 - Fever, unspecified Pneumonia Pneumonia type: due to unspecified organism Laterality: right Lung location: middle lobe of lung Qualified Codes: J18.1 - Lobar pneumonia, un specified organism RUBÉN VELÁZQUEZ DO Nov 03, 2017 18:24
[2017-11-03] MEDS ORDERED: ALBUTEROL/IPRATROPIUM 3 ML NEB NEB ONE (18:25)
[2017-11-03] MEDS ORDERED: methylPREDNIS SUCC 125 MG/2ML IVP ONE (18:25)
[2017-11-03 18:32] LABS: PLATELET COUNT, AUTOMATED 296 K/uL (150-450)
--- NOTE | 2017-11-03 18:41 | EKG ---
[place] [facility] [place] JEANIE ELKINS : [id number] MR: [id number] V: [id number] EXAM DATE: ORDERING PHYSICIAN: RUBÉN VELÁZQUEZ TECHNOLOGIST: Test Reason : dysnea Blood Pressure : / mmHG Vent. Rate : 082 BPM Atrial Rate : 082 BPM P-R Int : 166 ms QRS Dur : 082 ms QT Int : 358 ms P-R-T Axes : 088 086 069 degrees QTc Int : 418 ms Normal sinus rhythm Notched P II, III, AVF-query left atrial enlargement. When compared with ECG of 19-JAN-2016 18:10, premature atrial complexes are no longer present T wave amplitude has decreased in Lateral leads Confirmed by JYOTI RIVAS ([id number]) on 11/03/2017 7:55:45 PM Referred By: Confirmed By:JYOTI RIVAS
[2017-11-03 18:45] LABS: INR 1.11
[2017-11-03] MEDS ORDERED: ASPIRIN 81 MG CHEW PO ONE (19:00)
[2017-11-03] MEDS ORDERED: IOPAMIDOL 76% 75 ML INFUS BTL 0 ML ONE (19:00)
[2017-11-03] MEDS ORDERED: IOPAMIDOL 76% 75 ML INFUS BTL 75 ML ONE (19:19)
[2017-11-03] MEDS ORDERED: NS(*) 0.9% 50 ML BAG 50 ML ONE (19:19)
--- NOTE | 2017-11-03 20:43 | EKG ---
FACILITY: [facility] - [place] PATIENT NAME: JEANIE ELKINS : [id number] MR: [id number] V: [id number] EXAM DATE: ORDERING PHYSICIAN: RUBÉN VELÁZQUEZ TECHNOLOGIST: GARRICK Test Reason : WEAKNESS Blood Pressure : / mmHG Vent. Rate : 078 BPM Atrial Rate : 078 BPM P-R Int : 168 ms QRS Dur : 076 ms QT Int : 368 ms P-R-T Axes : 084 079 054 degrees QTc Int : 419 ms Normal sinus rhythm Possible left atrial enlargement. When compared with ECG of 03-NOV-2017 18:29, No significant change was found Confirmed by JYOTI RIVAS ([id number]) on 11/03/2017 9:39:27 PM Referred By: MELANIA Confirmed By:JYOTI RIVAS
--- NOTE | 2017-11-03 20:54 | RADIOLOGY IMAGING REPORT ---
FACILITY: [facility] - [place] PATIENT NAME: Jose Soliz : 1945 MR: [id number] V: [id number] EXAM DATE: ORDERING PHYSICIAN: RUBÉN VELÁZQUEZ TECHNOLOGIST: Location: [facility] - [place] Patient: Jose Soliz : 1945 Visit/Account:[id number] Date of Sevice: 11/03/2017 EXAMINATION: CTA of the chest with IV contrast HISTORY: Dyspnea. TECHNIQUE: Pulmonary embolus protocol - Thin axial CT images of the chest were obtained with IV con trast during maximal pulmonary arterial opacification. Reconstruction of the source data includes mul tiplanar 2D coronal and sagittal reconstructed images, and 3D coronal and sagittal MIP images. Repres entative images have been stored on PACS. One of the following dose optimization techniques was utilized in the performance of this exam: Autom ated exposure control; adjustment of the mA and/or kV according to the patient's size; or use of an i terative reconstruction technique. Specific details can be referenced in the facility's radiology C T exam operational policy. Contrast: 75 mL of IV Isovue-370. COMPARISON: None. FINDINGS: Pulmonary arteries: The pulmonary arteries are well opacified, without suspicious filling defect. Heart, aorta, and great vessels: Normal caliber thoracic aorta, without aneurysm or dissection. Norm al heart size. Vascular calcifications, including coronary artery calcifications. No pericardial effu socorro. Lungs and pleura: There are patchy regions of consolidation in the right middle lobe and right lower lobe, compatible with multifocal pneumonitis. There is partial opacification of bronchial segments i n the right lower lobe with some low-attenuation material which may represent secretions. No focal consolidation on the left. Moderate emphysematous changes in the upper lungs. No pleural eff usion or pneumothorax. Mediastinum and eligio: Mildly prominent bilateral hilar and mediastinal lymph nodes are nonspecific a nd may be reactive. Largest nodes measure 1.0 cm in short-axis diameter at the right hilum, 1.4 cm in the subcarinal region, and 1.0 cm at the left hilum. Visualized upper abdomen: Unremarkable. Chest wall: Negative. Bones: Multilevel degenerative changes throughout the spine. No acute osseous findings. IMPRESSION: 1. No evidence of pulmonary embolism. 2. There are patchy regions of consolidation in the right middle lobe and right lower lobe, suspiciou s for multifocal pneumonitis. There is some low-attenuation material within bronchial segments of the right lower lobe which may represent secretions. 3. Moderate emphysematous changes in the lungs. 4. Coronary artery calcifications. Report Dictated By: aRymond Mahmood MD at 11/03/2017 8:44 PM Report E-Signed By: Raymond Mahmood MD at 11/03/2017 8:50 PM WSN:[id number]
[2017-11-03] MEDS ORDERED: cefTRIAXone 1 GM VIAL IVP ONE (21:05)
[2017-11-03] MEDS ORDERED: LEVOFLOXACIN 500 MG TAB PO ONE (21:05)
[2017-11-03 23:30] VITALS: BP 120/72
== END 2017-11-03 23:45 | disposition short-term general hospital (02) ==
LOC: ER 18:22
DX: I21.4 Non-ST elevation (NSTEMI) myocardial infarction (principal); R09.02 Hypoxemia; R50.9 Fever, unspecified; J18.1 Lobar pneumonia, unspecified organism; R79.89 Other specified abnormal findings of blood chemistry; R53.1 Weakness; R06.00 Dyspnea, unspecified
CPT/HCPCS: 36415; 71275; 83605; 83880; 84484; 85025; 85379; 85610; 85730; 87040; 93005; 94640; 96361; 96374; 96375; 99291; A9270; J0696; J2930; J7030; J7050; J7620; Q9967; 82040; 82247; 82310; 82374; 82435; 82565; 82947; 84075; 84132; 84155; 84295; 84450; 84460; 84520

== ENCOUNTER → 2017-11-03 | Outpatient (CLI) | payer MEDICARE ==
[2016-01-20 09:48] VITALS: BMI 20.7
[~2017-11-03] MED LIST changes: +LEVO50TA86 PO
== END ==
LOC: AMB 23:36
PROVIDERS: ATTEND Nurse Practitioner
DX: J18.9 Pneumonia, unspecified organism (principal); R79.89 Other specified abnormal findings of blood chemistry
CPT/HCPCS: A0425; A0426

== ENCOUNTER → 2017-11-03 | Outpatient (CLI) | payer MEDICARE ==
[2016-01-20 09:48] VITALS: BMI 20.7
== END ==
LOC: AMB 17:31
PROVIDERS: ATTEND Nurse Practitioner
DX: R40.4 Transient alteration of awareness (principal); R09.02 Hypoxemia; R06.82 Tachypnea, not elsewhere classified
CPT/HCPCS: A0425; A0427